=== PATIENT | female | born 1975 | race Two or more races ===

== ENCOUNTER 2024-10-10 07:02 | Day surgery (SDC) | payer MEDICAID ==
[2024-10-06 09:24] LABS: BASOPHILS % (AUTO) 0.2 % (0-1); EOSINOPHILS # (AUTO) 0.1 X10'3 (0-0.9); EOSINOPHILS % (AUTO) 1.7 % (0-6); LYMPHOCYTES # (AUTO) 1.6 X10'3 (1.1-4.8); LYMPHOCYTES % (AUTO) 26.1 % (21-51); MEAN CORPUSCULAR HEMOGLOBIN 26.7 PG (27.0-31.0); MEAN CORPUSCULAR HGB CONC 32.4 g/dL (33.0-36.5); MEAN CORPUSCULAR VOLUME 82.4 FL (78-98); MEAN PLATELET VOLUME 6.2 FL (7.4-10.4); MONOCYTES # (AUTO) 0.4 X10'3 (0-0.9); MONOCYTES % (AUTO) 6.4 % (2-12); NEUTROPHILS # (AUTO) 4.1 X10'3 (1.8-7.7); NEUTROPHILS % (AUTO) 65.6 % (42-75); PRE OP HEMOGLOBIN 11.4 g/dL (12.0-16.0); PRE OP PLATELET COUNT 351 X10'3 (140-440); PRE OP WHITE BLOOD COUNT 6.3 10'3 (4.8-10.8); RED BLOOD COUNT 4.25 X10'6 (4.20-5.60); RED CELL DISTRIBUTION WIDTH 16.9 % (11.5-14.5)
[2024-10-06 09:50] LABS: HCG SERUM QL NEGATIVE
[2024-10-06 10:19] LABS: ALBUMIN 3.6 G/DL (3.4-5.0); ALKALINE PHOSPHATASE 66 IU/L (46-116); BLOOD UREA NITROGEN 20 MG/DL (7-18); BUN/CREATININE RATIO 28.6 (10.0-20.0); CALCIUM 8.9 MG/DL (8.5-10.1); CHLORIDE 106 MMOL/L (99-107); PRE OP ALT 22 U/L (30-65); PRE OP ANION GAP 10 (8-16); PRE OP AST 14 U/L (10-37); PRE OP BILIRUB, TOTAL 0.4 MG/DL (0.0-1.0); PRE OP GLUCOSE 95 MG/DL (70-104); PRE OP POTASSIUM 4.3 MMOL/L (3.4-5.1); PRE OP SODIUM 141 MMOL/L (135-145); TOTAL CARBON DIOXIDE 25.2 MMOL/L (24-32); TOTAL PROTEIN 7.1 G/DL (6.4-8.2); eGFR 89 ML/MIN
[~2024-10-10] VITALS: Ht 162.6 cm; Wt 60.6 kg
[~2024-10-10 07:02] MED LIST: NO HOME MEDS; ringers solution, lacted 1,000 ML IV SCH
[2024-10-10 07:08] VITALS: BP 148/84; PULSE 67; RESP 16; TEMP 97.1; O2SAT 100
[2024-10-10] MEDS: vancomycin/NS 1 GM ADD-VANTAGE 250 ML IV ONE (07:30)
[2024-10-10] MEDS: famotidine 20mg tablet PO ONE (07:30)
[2024-10-10] MEDS ORDERED: BUPIVAcaine/PF 2.5mg/ml (0.25%) 10ml vial ONE (09:10)
[2024-10-10] MEDS ORDERED: LIDOcaine 1% 30ml preserv. free vial ONE (09:10)
[2024-10-10] MEDS ORDERED: sevoflurane 250ml liquid IH ONE (09:12)
[2024-10-10] MEDS ORDERED: fentaNYL/PF 50MCG/1 ML 2ML syringe ONE (09:21)
[2024-10-10] MEDS ORDERED: LIDOcaine 2% (20mg/ml) 5ml vial ONE (09:33)
[2024-10-10] MEDS ORDERED: midazolam 1 mg/ML 2ml injection ONE (09:33)
[2024-10-10] MEDS ORDERED: propofol inj 20 ML IV ONE (09:33)
[2024-10-10] MEDS ORDERED: dexamethasone sod phosphate 4mg/ml inj. ONE (09:34)
[2024-10-10] MEDS ORDERED: ePHEDrine 50MG/ML INJ. ONE (09:34)
[2024-10-10] MEDS ORDERED: ondansetron/PF 4mg/2ml inj ONE (09:34)
[2024-10-10] MEDS ORDERED: meperidine/PF 25mg/ml syringe IV PRN ×3 (09:35)
[2024-10-10] MEDS ORDERED: ondansetron/PF 4mg/2ml inj IV PRN (09:35)
[2024-10-10] MEDS ORDERED: morphine 2 MG/ML inj. syringe IV PRN (09:35)
[2024-10-10] MEDS ORDERED: labetalol 20mg/4ml (5mg/ml) syringe IV PRN (09:35)
[2024-10-10] MEDS ORDERED: hydrALAZINE 20mg/ml inj. IV PRN (09:35)
[2024-10-10] MEDS ORDERED: morphine 4 MG/ML inj SYRINge IV PRN (09:35)
[2024-10-10] MEDS ORDERED: acetaminophen 1,000mg/100ml IV 100 ML IV ONE (09:35)
[2024-10-10] MEDS ORDERED: ringers solution, lacted 1,000 ML IV SCH (09:35)
[2024-10-10] MEDS ORDERED: proCHLORperazine 10 MG/2 ml inj IV PRN (09:35)
[2024-10-10 10:20] VITALS: BP 149/61; PULSE 87; RESP 16; O2SAT 99
[2024-10-10 10:30] VITALS: BP 154/75; PULSE 74; RESP 13; O2SAT 100
[2024-10-10 10:40] VITALS: BP 161/73; PULSE 70; RESP 14; O2SAT 100
[2024-10-10 10:50] VITALS: BP 153/84; PULSE 66; RESP 13; O2SAT 100
== END 2024-10-10 11:00 | disposition home or self-care (01) ==
LOC: PAS 07:02
PROVIDERS: ATTEND Surgery
DX: D24.1 Benign neoplasm of right breast (principal); D64.9 Anemia, unspecified; N60.11 Diffuse cystic mastopathy of right breast; Z79.899 Other long term (current) drug therapy; N60.12 Diffuse cystic mastopathy of left breast
CPT/HCPCS: 19301; 36415; 80053; 82948; 84703; 85025; 93005; J1100; J2003; J2250; J2405; J2704; J3010; J3370; J3490; J7030; J7120; Z7506; Z7508; Z7512; A4215; A4618; A6258; A6449; A7000